=== PATIENT | female | born 1965 | race Caucasian/White ===

== ENCOUNTER → 2023-11-18 17:26 | Outpatient (REF) | payer BC, SELFPAY | LOC: RAD 17:26 | PROVIDERS: ATTENDING PHYSICIAN Family Medicine | DX: M79.672 Pain in left foot (principal) | CPT/HCPCS: 73630 ==

== ENCOUNTER → 2023-11-19 10:24 | Outpatient (REF) | payer BC, SELFPAY | LOC: HWWDC 10:24 | PROVIDERS: ATTENDING PHYSICIAN Obstetrics & Gynecology; FAMILY PHYSICIAN Family Medicine | DX: Z12.31 Encounter for screening mammogram for malignant neoplasm of breast (principal) | CPT/HCPCS: 77063; 77067 ==

== ENCOUNTER → 2024-05-17 10:56 | Outpatient (REF) | payer BC, SELFPAY | LOC: HWRAD 10:56 | PROVIDERS: ATTENDING PHYSICIAN Family Medicine | DX: I87.2 Venous insufficiency (chronic) (peripheral) (principal) | CPT/HCPCS: 93970 ==

== ENCOUNTER 2024-07-13 06:33 | Day surgery (SDC) | payer BC, SELFPAY | END 2024-07-13 14:52 | disposition home or self-care (01) | LOC: GI 06:33 | PROVIDERS: ATTENDING PHYSICIAN Surgery | DX: Z12.11 Encounter for screening for malignant neoplasm of colon (principal); Z86.0100 Personal history of colon polyps, unspecified; Z83.719 Family history of colon polyps, unspecified ==

== ENCOUNTER 2024-07-19 08:31 | Inpatient (IN) | payer BC, SELFPAY ==
[2024-07-13] VITALS (7 sets, daily range): BP systolic 121–153; BP diastolic 71–96; BMI 26.5
[2024-07-13 21:45] LABS: % Basophils 0.9 % (0-2); % Eosinophils 1.6 % (0-6); % Immature Granulocytes 0.1 % (0-0.5); % Lymphocytes 32.6 % (20.5-51.1); % Monocytes 9.4 % (1.7-9.3); % Neutrophils 55.4 % (42.2-75.2); Absolute Basophils 0.1 10^3/uL (0-0.2); Absolute Eosinophils 0.1 10^3/uL (0-0.7); Absolute Lymphocytes 2.4 10^3/uL (1.2-3.4); Absolute Monocytes 0.7 10^3/uL (0.1-0.6); Absolute Neutrophils 4.1 10^3/uL (1.4-6.5); Hematocrit 40.4 % (37.0-47.0); Hemoglobin 13.9 g/dL (12.0-16.0); Mean Corp Hgb Conc. 34.4 g/dL (33.0-37.0); Mean Corpuscular Hgb 32.8 pg (27.0-31.0); Mean Corpuscular Volume 95.3 fL (81.0-99.0); Mean Platelet Volume 10.4 fL (7.4-10.4); Nucleated Red Blood Cells % 0 %; Platelet Count 256 10^3/uL (130-400); Red Blood Cell Count 4.24 10^6/uL (4.20-5.40); Red Cell Dist. Width 11.8 % (11.5-14.5); White Blood Cell Count 7.5 10^3/uL (4.8-10.8)
[2024-07-13 22:07] LABS: ALT (SGPT) 152 U/L (0-35); AST (SGOT) 151 U/L (14-36); Albumin 4.8 g/dl (3.5-5.0); Alkaline Phosphatase 88 U/L (38-126); Blood Urea Nitrogen 11 mg/dl (7-17); Calcium 9.5 mg/dl (8.4-10.2); Carbon Dioxide 28 mmol/L (22-30); Chloride 103 mmol/L (98-107); Estimated Creatinine Clearance 76 ml/min; Glucose 97 mg/dl (70-99); Potassium 3.5 mmol/L (3.5-5.1); Sodium 140 mmol/L (135-145); Total Bilirubin 0.6 mg/dl (0.2-1.3); Total Protein 7.2 g/dl (6.3-8.2); eGFR > 60.00
[2024-07-14] VITALS (8 sets, daily range): BP systolic 124–173; BP diastolic 78–100; BMI 25.2
--- NOTE | 2024-07-14 00:23 | ED.GENMED ---
History of Present Illness
<Laisha Almonte PA-C - Last Filed: 07/14/24 06:59>
General
Chief Complaint: Rectal Bleeding
Source: patient
Exam Limitations: none
Time Seen by Provider: 07/14/24 00:18
Nursing documentation reviewed up to this point in time: agreed with
History of Present Illness
History of Present Illness:
This is a 59 y/o female with a pmh of APS on warfarin, hypertension, hemorrhoids who presents emergency department today with concerns of heavy rectal bleeding. Patient reports that she had a colonoscopy with Dr. Chowdary today at around 1 pm. When
she got home, she started to notice some mild rectal bleeding at around 5 PM. She then started to then feel bit fatigued and lightheaded and 3 episodes in which she soaked through multiple pairs of underwear, filled the toilet bowel, and said that
bright red blood was pouring out of her rectum. She tried to call Dr. Chowdary's office but she could not get in contact with anyone. She subsequently contacted her and they went to the ER. Patient reports that since she has been in the
emergency department, her bleeding has slowed down. She denies any abdominal pain. She denies any nausea or vomiting. Patient did not have a biopsy or polyp removal at that time.
Past History
<Laisha Almonte PA-C - Last Filed: 07/14/24 06:59>
Past History
ED Past Medical History: HTN and Other (Pre clampsia, Migraines, antiphospholipid antibody syndrome)
ED Past Surgical History: and Tonsilectomy
Social History
Tobacco: Non-smoker
Alcohol: None
Personal:
Living: with family
Review of Systems
<Laisha Almonte PA-C - Last Filed: 07/14/24 06:59>
Review of Systems
All Other Systems: ROS reviewed and negative except as documented in HPI and ROS
Phy Exam
<Laisha Almonte PA-C - Last Filed: 07/14/24 06:59>
Physical Exam
Physical Exam:
General: Patient is well appearing and in no acute distress; non-toxic
Skin: Warm and dry, no rashes or lesions
Head: Normocephalic, atraumatic
Eyes: Sclera non-icteric. EOMs intact.
Cardiac: Regular rate and rhythm, no murmurs
Peripheral Vascular: No lower extremity swelling or edema
Pulm: Normal respiratory effort, no wheezes, rales, rhonchi
Abdomen: No abdominal tenderness to palpation
Genitourinary: External hemorrhoids noted. Bright red blood within the rectal vault, maroon-colored stool.
Neuro: CN II-XII intact, no focal neurologic deficits.
Psychiatric: Appropriate mood and affect.
Course
<DIDI Gillette Filed: 07/14/24 06:59>
Orders/Labs/Results
Orders:
Orders
07/13/24 21:33
Type And Crossmatch [Type+Screen] Urgent
Complete Blood Count/With Diff Urgent
Comprehensive Metabolic Panel Urgent
07/14/24 00:47
0.9% Sodium Chloride 1000 ml [Nss] 1,000 ml IV BOLUS
07/14/24 00:58
Complete Blood Count/With Diff Urgent
07/14/24 02:20
Prothrombin Time Urgent
07/14/24 03:18
ColoRectal Surgery Consult Urgent
Consulting Provider: Rashaun Chowdary
Was physician already notified: Yes
07/14/24 04:40
Admit/Transfer Patient As Directed
Co-Sign Provider:
Level of Care: Observation services
Assign to:: Telemetry
Physician / Group: Robert
Diagnosis: LGIB
Reason for Telemetry: Arrhythmia
Date to Stop Telemetry: 07/17/24
Time to Stop Telemetry: 11:00
Code Status As Directed
Resuscitation Status: Full Code
PRN Pain Medication Management As Directed
May give lesser potent ordered pain med per pt: Yes
preference::
Protocol:: Medication orders for pain may be administered in a
manner that supports deferring to patient preference
when the pt is:
- Requesting an ordered lesser potent pain medication.
Least to most potent pain medications are defined
as: acetaminophen < NSAID < tramadol < opioids
(morphine, oxycodone, hydromorphone).
- Requesting a lesser dose of the same medication IF
ORDERED.
- Requesting a less intrusive route of administration
if both routes are prescribed by the provider (PO <
IV).
07/14/24 05:11
Acetaminophen [Tylenol] 650 mg PO Q4HPRN PRN
Lactated Ringers [Lr] 1,000 ml IV 100 mls/hr
Ondansetron Injectable [Zofran] 4 mg IV Q6HPRN PRN
07/14/24 05:11
Activity As Directed
Activity Level: Bedrest
EKG with chest pain [ECG as needed] As Directed
ECG as needed for:: Chest Pain
I/O [Intake/ Output] As Directed
Frequency: Per unit guidelines
Pneumatic Compression Sleeves As Directed
Type: Knee high
Vital Signs As Directed
Frequency: Per unit guidelines
Oxygen Therapy [O2 Therapy] [RESP] Routine
Titrate/Wean O2 to maintain O2 sat greater than (%): 94
DX Deep Vein Thrombosis Video Routine
07/14/24 Breakfast
NPO
Allow oral meds: Yes
Allow clear liquids: Sips of Clears
07/14/24 06:08
Basic Metabolic Panel IN AM
Complete Blood Count/No Diff IN AM
Prothrombin Time IN AM
07/14/24 08:00
Pantoprazole [Protonix IV] 40 mg IV DAILY
07/15/24 06:00
Prothrombin Time IN AM
07/16/24 06:00
Prothrombin Time IN AM
07/17/24 06:00
Prothrombin Time IN AM
07/17/24 11:00
DC Protocol for Telemetry ONCE
Abnormal Lab Results
07/13/24 07/14/24
21:33 00:58
RBC 3.66 L 10^6/uL
(4.20-5.40)
Hct 34.8 L %
(37.0-47.0)
MCH 32.8 H pg 33.1 H pg
(27.0-31.0) (27.0-31.0)
Absolute Monos (auto) 0.7 H 10^3/uL
(0.1-0.6)
Monocytes % 9.4 H %
(1.7-9.3)
AST 151 H U/L
(14-36)
ALT 152 H U/L
(0-35)
07/14/24 00:58
07/13/24 21:33
Vital Signs
Initial and Last Documented VS:
Initial Vital Signs
Temp Pulse Resp Pulse Ox
98.2 F 95 18 100
07/13/24 21:18 07/13/24 21:18 07/13/24 21:18 07/13/24 21:18
Last Documented Vital Signs
Temp Pulse Resp BP Pulse Ox
98.2 F 68 15 157/98 97
07/13/24 21:18 07/14/24 06:16 07/14/24 06:16 07/14/24 06:16 07/14/24 06:16
<Cody Long, DO - Last Filed: 07/14/24 02:53>
Orders/Labs/Results
Orders:
Orders
07/13/24 21:33
Type And Crossmatch [Type+Screen] Urgent
Complete Blood Count/With Diff Urgent
Comprehensive Metabolic Panel Urgent
07/14/24 00:47
0.9% Sodium Chloride 1000 ml [Nss] 1,000 ml IV BOLUS
07/14/24 00:58
Complete Blood Count/With Diff Urgent
07/14/24 02:20
Prothrombin Time Urgent
07/14/24 03:18
ColoRectal Surgery Consult Urgent
Consulting Provider: Rashaun Chowdary
Was physician already notified: Yes
07/14/24 04:40
Admit/Transfer Patient As Directed
Co-Sign Provider:
Level of Care: Observation services
Assign to:: Telemetry
Physician / Group: Robert
Diagnosis: LGIB
Reason for Telemetry: Arrhythmia
Date to Stop Telemetry: 07/17/24
Time to Stop Telemetry: 11:00
Code Status As Directed
Resuscitation Status: Full Code
PRN Pain Medication Management As Directed
May give lesser potent ordered pain med per pt: Yes
preference::
Protocol:: Medication orders for pain may be administered in a
manner that supports deferring to patient preference
when the pt is:
- Requesting an ordered lesser potent pain medication.
Least to most potent pain medications are defined
as: acetaminophen < NSAID < tramadol < opioids
(morphine, oxycodone, hydromorphone).
- Requesting a lesser dose of the same medication IF
ORDERED.
- Requesting a less intrusive route of administration
if both routes are prescribed by the provider (PO <
IV).
07/14/24 05:11
Acetaminophen [Tylenol] 650 mg PO Q4HPRN PRN
Lactated Ringers [Lr] 1,000 ml IV 100 mls/hr
Ondansetron Injectable [Zofran] 4 mg IV Q6HPRN PRN
07/14/24 05:11
Activity As Directed
Activity Level: Bedrest
EKG with chest pain [ECG as needed] As Directed
ECG as needed for:: Chest Pain
I/O [Intake/ Output] As Directed
Frequency: Per unit guidelines
Pneumatic Compression Sleeves As Directed
Type: Knee high
Vital Signs As Directed
Frequency: Per unit guidelines
Oxygen Therapy [O2 Therapy] [RESP] Routine
Titrate/Wean O2 to maintain O2 sat greater than (%): 94
DX Deep Vein Thrombosis Video Routine
07/14/24 Breakfast
NPO
Allow oral meds: Yes
Allow clear liquids: Sips of Clears
07/14/24 06:08
Basic Metabolic Panel IN AM
Complete Blood Count/No Diff IN AM
Prothrombin Time IN AM
07/14/24 08:00
Pantoprazole [Protonix IV] 40 mg IV DAILY
07/15/24 06:00
Prothrombin Time IN AM
07/16/24 06:00
Prothrombin Time IN AM
07/17/24 06:00
Prothrombin Time IN AM
07/17/24 11:00
DC Protocol for Telemetry ONCE
Abnormal Lab Results
07/13/24 07/14/24
21:33 00:58
RBC 3.66 L 10^6/uL
(4.20-5.40)
Hct 34.8 L %
(37.0-47.0)
MCH 32.8 H pg 33.1 H pg
(27.0-31.0) (27.0-31.0)
Absolute Monos (auto) 0.7 H 10^3/uL
(0.1-0.6)
Monocytes % 9.4 H %
(1.7-9.3)
AST 151 H U/L
(14-36)
ALT 152 H U/L
(0-35)
07/14/24 00:58
07/13/24 21:33
Vital Signs
Initial and Last Documented VS:
Initial Vital Signs
Temp Pulse Resp Pulse Ox
98.2 F 95 18 100
07/13/24 21:18 07/13/24 21:18 07/13/24 21:18 07/13/24 21:18
Last Documented Vital Signs
Temp Pulse Resp BP Pulse Ox
98.2 F 68 15 157/98 97
07/13/24 21:18 07/14/24 06:16 07/14/24 06:16 07/14/24 06:16 07/14/24 06:16
<Laisha Almonte PA-C - Last Filed: 07/14/24 06:59>
MDM/Problems Addressed
Differential Diagnosis Includes:
Differentials include lower GI bleed/post procedural bleeding, bleeding hemorrhoid, colonic perforation, supratherapeutic INR
MDM/Problems Addressed:
This is a 59 y/o female with a pmh of APS on warfarin, hypertension, hemorrhoids who presents emergency department today with concerns of heavy rectal bleeding. Patient reports that she had a colonoscopy with Dr. Chowdary today at around 1 pm. When
she got home, she started to notice some mild rectal bleeding at around 5 PM. This was then followed by 3 episodes of heavy bleeding and she states that it was pouring out of her. On physical exam, she is well-appearing in no acute distress, her
vital signs are stable, her H&H is stable. She does have maroon-colored stool and bright red blood within the rectal vault. Reviewed case with my attending. Plan to admit to hospitalist for observation with consult to Dr. Chowdary.
<Laisha Almonte PA-C - Last Filed: 07/14/24 06:59>
*Pulse Oximetry
Patient hypoxic: no
*Critical Care Note
Total Time (30-74mins, 75-104mins- exclusive of procedures): Not Applicable
Data Reviewed
Review of Other/Old Records Reveals: Records (Reviewed history summary from patient seen for mesenteric hematoma secondary to Coumadin therapy)
Source: patient and records
<Laisha Almonte PA-C - Last Filed: 07/14/24 06:59>
Patient Management
Escalation/DeEscalation of care consider admission/obs:
Case reviewed with my attending patient referred for admission
ED Attending Note
<Laisha Almonte PA-C - Last Filed: 07/14/24 06:59>
-
Portions of this chart may have been created with voice recognition software.� Occasional wrong word or��sound alike� substitutions may have occurred due to the inherent limitations of voice recognition software.
<Cody Long DO - Last Filed: 07/14/24 02:53>
ED Attending Note
Patient seen and examined by attending physician: Yes
ED Attending Note:
Pleasant 59-year-old female presents with rectal bleeding this evening after getting home from the hospital after a colonoscopy. Patient is on warfarin for antiphospholipid. Patient states that the bleeding has stopped. Patient is seen in
conjunction with the PA. I have reviewed and agree with her history and treatment plan. On my independent physical exam patient is awake, alert, and oriented x 3, in no acute distress. Heart is regular rate and rhythm without murmurs rubs or
gallops appreciated. Abdomen is soft with very minimal tenderness to the splenic and hepatic flexures. Good bowel sounds x 4 quadrants. No generalized bowel pain appreciated. Plan is to consult Dr. Chowdary, colorectal surgery and admit to the
hospitalist service.
Discharge Plan
Departure
Patient Disposition: Admit
Date of Disposition: 07/14/24
Time of Disposition: 03:20
Admit to: Med/Surg
Presentation/result/management discussed w/ accepting MD/DO: Hospitalist
Patient with high blood pressure during this ER visit?: Yes
Condition: Fair
Discharge Problem:
Colonoscopy causing post-procedural bleeding
Interventions
Interventions:
*Risk Screen - Suicide Last Done: 07/13/24 21:34
*General Assessment Last Done: 07/13/24 21:34
*Neglect/Abuse Screening Last Done: 07/13/24 21:34
*ED- Fall Risk Assessment Last Done: 07/13/24 21:34
*ED COVID-19 Vaccine History Last Done: 07/13/24 21:34
RM-Ghcztd-Qhjnbbcqmw Assessment Last Done: 07/13/24 21:34
ED- Cardiac Assessment Last Done: 07/13/24 21:34
ED- Pulmonary Assessment Last Done: 07/13/24 21:34
[2024-07-14] MEDS: NSS 1000 IV (00:51)
[2024-07-14 01:07] LABS: % Basophils 0.5 % (0-2); % Eosinophils 0.7 % (0-6); % Immature Granulocytes 0.2 % (0-0.5); % Lymphocytes 25.8 % (20.5-51.1); % Monocytes 7.7 % (1.7-9.3); % Neutrophils 65.1 % (42.2-75.2); Absolute Lymphocytes 1.5 10^3/uL (1.2-3.4); Absolute Monocytes 0.4 10^3/uL (0.1-0.6); Absolute Neutrophils 3.7 10^3/uL (1.4-6.5); Hematocrit 34.8 % (37.0-47.0); Hemoglobin 12.1 g/dL (12.0-16.0); Mean Corp Hgb Conc. 34.8 g/dL (33.0-37.0); Mean Corpuscular Hgb 33.1 pg (27.0-31.0); Mean Corpuscular Volume 95.1 fL (81.0-99.0); Mean Platelet Volume 10.1 fL (7.4-10.4); Nucleated Red Blood Cells % 0 %; Platelet Count 213 10^3/uL (130-400); Red Blood Cell Count 3.66 10^6/uL (4.20-5.40); Red Cell Dist. Width 11.7 % (11.5-14.5); White Blood Cell Count 5.6 10^3/uL (4.8-10.8)
[2024-07-14 02:44] LABS: INR 1.03; PT 13.8 Sec (11.4-14.6)
--- NOTE | 2024-07-14 04:42 | HPS.HSE ---
Family Physician
-
Family Physician: NO INTERVIEW UNKNOWN
Chief Complaint
-
BRBPR
History of Present Illness
Patient is a 59y F with PMH significant for antiphospholipid Abs syndrome who presents to ED complaining of BRBPR. Patient states that she underwent a colonoscopy at 1PM today with Dr. Chowdary. Colonoscopy was normal and no biopsies /
polypectomies were performed. Patient returned home and noted passage of small amount of bright red blood per rectum around 4PM. She continued to have small amounts until around 8:30 PM when she had a large movement consisting of large amount of
dark, red blood. She denies any abdominal pain / rectal discomfort.
She does note some lightheadedness / fatigue - which she had attributed to her recent bowel prep, anesthesia, etc.
Patient has prior history of clotting and bleeding issues secondary to APL syndrome and anticoagulation therapy.
She took her last dose of Coumadin on Friday evening in preparation for her colonoscopy.
She was placed on a Lovenox bridge which she started on AM. She did take a dose of Lovenox this AM prior to colonoscopy (which she was supposed to skip).
No anticoagulants taken since her procedure.
Patient had a single BRB bowel movement on arrival to the ED and has not had further bleeding since that time.
Medical History
Past Medical History
Past Medical History: Reports Other
Additional Past Medical History:
Antiphospholipid Syndrome
Migraine Headaches
Hypertension
Renal Infarct
Past Surgical History: Reports Other
Additional Past Surgical History:
T&A
x 2
Ex Lap / Evacuation of Peritoneal Hematoma
Social History
Tobacco: Non-smoker
Alcohol: None
Drug: None
Family History
Family History: Not pertinent
Allergies / Home Medications
Allergies reflects when Allergies were last updated in [facility].
Home Medications with original date entered in [facility]
Allergy/Medication List:
Allergies
Allergy/AdvReac Type Severity Reaction Status Date / Time
bacitracin Allergy Unknown Verified 07/13/24 21:23
[From Neosporin
([id number])]
bacitracin zinc Allergy Unknown Verified 07/13/24 21:23
[From Neosporin
([id number])]
ciprofloxacin Allergy Rash Verified 07/13/24 21:23
diphenhydramine Allergy hives all Verified 07/13/24 21:23
[From Benadryl] over
doxycycline Allergy Unknown Verified 07/13/24 21:23
erythromycin base Allergy Unknown Verified 07/13/24 21:23
[Erythromycin Base]
neomycin sulfate Allergy Unknown Verified 07/13/24 21:23
[From Neosporin
([id number])]
Penicillins Allergy Unknown Verified 07/13/24 21:23
polymyxin B Allergy Unknown Verified 07/13/24 21:23
[From Neosporin
([id number])]
Home Medications
warfarin 5 mg tablet (Jantoven) 5 mg PO .MONWEDFRISAT 06/06/18
enoxaparin 80 mg/0.8 mL subcutaneous syringe 70 mg (0.7 mL) SC Q12H ##12 06/12/18
warfarin 7.5 mg tablet (Jantoven) 7.5 mg PO .ULICES ##0 06/12/18
verapamil 180 mg tablet,extended release 180 mg PO DAILY 07/14/24
Review of Systems
-
History Source: Patient
A 12 point ROS was completed and negative except as noted: Yes
Constitutional: Reports Fatigue; Denies Fever or Chills
Respiratory: Denies Cough or Trouble Breathing
Cardiac: Denies Chest Pain or Palpitations
Abdomen/GI: Reports Bloody Stools; Denies Abdominal Pain, Nausea, Vomiting or Diarrhea
: Denies Dysuria, Frequency or Flank Pain
Musculoskeletal: Denies Joint Pain or Edema
Neurological: Denies Dizzy or Headache
Physical Exam
Vital Signs
Vital Signs
Temp Pulse Resp BP Pulse Ox
98.2 F 71 18 147/86 95
07/13/24 21:18 07/14/24 04:00 07/14/24 04:00 07/14/24 02:08 07/14/24 00:00
Physical Exam
General: Other (59y F in no acute distress.)
HEENT: Moist mucous membranes and PERRLA
Respiratory: Clear; No Wheezes, Rales or Rhonchi
Cardiac: S1/S2 and Regular Rhythm; No Murmur
GI: Soft, Non Tender, Non Distended and Normal Bowel Sounds
Musculoskeletal: No Clubbing, No Cyanosis and No Edema
Neuro: AO x 3
Laboratory Results
-
07/14/24 00:58
07/13/24 21:33
Laboratory Results
PT 13.8 Sec (11.4-14.6) 07/14/24 02:20
INR 1.03 07/14/24 02:20
Total Bilirubin 0.6 mg/dl (0.2-1.3) 07/13/24 21:33
AST 151 U/L (14-36) H 07/13/24 21:33
ALT 152 U/L (0-35) H 07/13/24 21:33
Alkaline Phosphatase 88 U/L (38-126) 07/13/24 21:33
Impression/Plan
-
A/P: Patient is a 59y F with PMH significant for antiphospholipid syndrome who presents to ED complaining of BRBPR s/p colonoscopy.
LGIB
- Observe for further evaluation and treatment.
- Continue to hold all anticoagulation for now (last dose was Lovenox in AM of 07/13).
- Follow for any additional bleeding.
- Check CTA if additional bleeding episodes.
- Follow H&H and transfuse if indicated.
- Colorectal Surgery evaluation for additional recommendations.
APL Syndrome
- Holding anticoagulation acutely as noted above.
- Resume Lovenox to Coumadin bridge once GI bleeding issues are resolved.
Benign Hypertension
- Hold verapamil acutely.
- Follow BP for changes.
Abnormal LFTs
- Mild increase in transaminases - appears new from prior.
- ? etiology of this finding. No abdominal pain, nausea, etc.
- Follow for improvement.
DVT Prophylaxis: SCDs
Code Status: Full
[2024-07-14] MEDS: LR 1000 IV (06:10)
[2024-07-14 06:28] LABS: Hematocrit 35.1 % (37.0-47.0); Mean Corp Hgb Conc. 34.2 g/dL (33.0-37.0); Mean Corpuscular Hgb 32.4 pg (27.0-31.0); Mean Corpuscular Volume 94.9 fL (81.0-99.0); Mean Platelet Volume 10.2 fL (7.4-10.4); Platelet Count 197 10^3/uL (130-400); Red Cell Dist. Width 11.8 % (11.5-14.5); White Blood Cell Count 5.5 10^3/uL (4.8-10.8)
[2024-07-14 06:36] LABS: INR 1.05
[2024-07-14 06:55] LABS: Blood Urea Nitrogen 7 mg/dl (7-17); Calcium 8.6 mg/dl (8.4-10.2); Carbon Dioxide 27 mmol/L (22-30); Chloride 110 mmol/L (98-107); Estimated Creatinine Clearance 89 ml/min; Glucose 92 mg/dl (70-99); Potassium 3.4 mmol/L (3.5-5.1); Sodium 143 mmol/L (135-145); eGFR > 60.00
[2024-07-14] MEDS: NSS (PRESERVATIVE FREE) 10 ML IV (07:47)
[2024-07-14] MEDS: PROTONIX IV 40 MG IV (07:47)
--- NOTE | 2024-07-14 10:32 | W.PN.HOSP.TC ---
Today's Communication/Plan
-
Advance diet.
Resume Lovenox for bridging tonight
Follow hemoglobin
Assessment / Plan
Assessment / Plan
Impression:
Patient is a 59y F with PMH significant for antiphospholipid syndrome who presents to ED complaining of BRBPR s/p colonoscopy.
Post polypectomy lower gastrointestinal bleeding
Elevated transaminases
Mild hypokalemia
Conditions prior to admission:
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
Benign hypertension
Plan:
Post polypectomy bleeding in the settings of anticoagulation
Patient with antiphospholipid syndrome on anticoagulation is Coumadin with last dose of Coumadin on 07/07 bridging with Lovenox. Last dose of Lovenox the day of the procedure 07/13.
Reported bright red blood movement prior to admission to ED.
Hemoglobin stable 13�12 likely dilutional with no additional hemorrhage since admission.
Advance to low residue diet.
Resume Lovenox tonight for bridging.
Follow hemoglobin in a.m.
Antiphospholipid syndrome.
Chronic anticoagulation with Coumadin
Patient will need bridging with Lovenox to therapeutic INR (increased risk for thromboembolic events without bridging given transient decrease of protein S C levels with initiation of Coumadin)
Abnormal LFTs with mild elevation of transaminases.
Follow trend.
If uptrending consider imaging
Essential hypertension
Continue verapamil
Anticipated Discharge: 24 - 48 hours
Subjective/Interval History
-
Date of Service: July 14, 2024
Objective Data
-
Labs:
Laboratory Results
07/14/24 07/14/24 07/14/24
00:58 02:20 06:08
WBC 5.6 5.5
Hgb 12.1 12.0
Hct 34.8 L 35.1 L
Plt Count 213 197
PT 13.8 14.0
INR 1.03 1.05
Sodium 143
Potassium 3.4 L
Chloride 110 H
Carbon Dioxide 27
BUN 7
Creatinine 0.6
Glucose 92
Calcium 8.6
Vital Signs:
Vital Signs
Temp Pulse Resp BP Pulse Ox
98.2 F 74 11 157/98 97
07/13/24 21:18 07/14/24 09:00 07/14/24 09:00 07/14/24 06:16 07/14/24 06:16
I&O
07/13/24 07/14/24 07/15/24
06:59 06:59 06:59
Intake Total 1000 / 1000
Output Total 600 / 600
Balance 400 / 400
Physical Exam
-
General: Well Developed and No Apparent Distress
HEENT: Normocephalic, Atraumatic and Moist Mucous Membranes
Respiratory: Clear to Auscultation
Cardiac: Regular Rhythm and S1/S2; Negative Murmur, Rub or Gallop
GI: Soft, Nontender, Nondistended and Normal Bowel Sounds; Negative Organomegaly
Rectal: Deferred by Provider
Musculoskeletal: No Clubbing, No Cyanosis and No Edema
Skin: Negative Rash
Neuro: Nonfocal/Grossly Intact
[2024-07-14] MEDS: KCL 40 MEQ PO (11:42)
--- NOTE | 2024-07-14 12:55 | CON.CRS ---
Consultation
-
Date/Time Consultation Requested: 07/14/2024, 3:18 AM
Date/Time Consultation Performed: 07/14/2024, 8:30 AM
Requesting Provider: Laisha Almonte PA-C
Performing Provider: Dr. Robert Chowdary
Reason for Consultation: Rectal bleeding
Medical History
-
Chief Complaint: Rectal bleeding status post colonoscopy
History of Present Illness:
59-year-old female with a history of antiphospholipid antibody syndrome and history of abdominal hemoperitoneum hematoma status post ex lap with evacuation of hematoma in 2018, presents to [facility] emergency department due to rectal
bleeding status post colonoscopy. She underwent a colonoscopy yesterday by Dr. Chowdary on 07/13/2024. The entire colon was normal and no specimens were collected. The patient states after she went home she developed rectal bleeding that became quite
severe around 8:30 PM. She states the bleeding was dark and cloudy in nature and felt like 'a faucet had turned on into the toilet'. She does have a history of clotting and bleeding issues secondary to her antiphospholipid antibody syndrome. She
receives Coumadin daily and was placed on Lovenox. When she started on 07/08/2024. Her last dose of Lovenox was the morning of the colonoscopy. Her last bloody bowel movement was on arrival to the ER and she has not had any bleeding since.
Hemoglobin on arrival was 13.9. Today is 12.0. Her vitals have remained normal. She has not had any imaging. Given the above, we have been consulted for surgical recommendations.
Past Medical History
Past Medical History: HTN and Other (Antiphospholipid Syndrome, Migraine Headaches, Renal Infarct)
Past Surgical History: and Other ( Exploratory laparotomy, with evacuation of hematoma 06/06/2018, Robert Chowdary MD )
Social History
Tobacco: Non-Smoker
Alcohol: None
Drug: None
Family History
Family History: Reviewed & Not Pertinent
Allergies / Home Medications
Allergy/AdvReac Type Severity Reaction Status Date / Time
bacitracin Allergy Unknown Verified 07/13/24 21:23
[From Neosporin
([id number])]
bacitracin zinc Allergy Unknown Verified 07/13/24 21:23
[From Neosporin
([id number])]
ciprofloxacin Allergy Rash Verified 07/13/24 21:23
diphenhydramine Allergy hives all Verified 07/13/24 21:23
[From Benadryl] over
doxycycline Allergy Unknown Verified 07/13/24 21:23
erythromycin base Allergy Unknown Verified 07/13/24 21:23
[Erythromycin Base]
neomycin sulfate Allergy Unknown Verified 07/13/24 21:23
[From Neosporin
([id number])]
Penicillins Allergy Unknown Verified 07/13/24 21:23
polymyxin B Allergy Unknown Verified 07/13/24 21:23
[From Neosporin
([id number])]
�Medication �Instructions �Recorded �Confirmed �Type
enoxaparin 80 mg/0.8 mL 70 mg (0.7 mL) SC Q12H ##12 06/12/18 07/14/24 Rx
subcutaneous syringe
acetaminophen 325 mg tablet 650 mg PO Q4HPRN PRN mild pain 07/14/24 07/14/24 History
(Tylenol)
cholecalciferol (vitamin D3) 25 25 mcg PO DAILY 07/14/24 07/14/24 History
mcg (1,000 unit) tablet (Vitamin
D3)
magnesium oxide 420 mg tablet 420 mg PO DAILY 07/14/24 07/14/24 History
riboflavin (vitamin B2) 50 mg 50 mg PO DAILY 07/14/24 07/14/24 History
tablet
triamcinolone acetonide 55 mcg 1 spray intranasal DAILY 07/14/24 07/14/24 History
nasal spray aerosol (Nasacort)
verapamil 180 mg tablet,extended 180 mg PO DAILY 07/14/24 07/14/24 History
release
Review of Systems
-
History Source: Patient
Abdomen/GI: Bloody Stools
A 10 point review of systems was completed, and was negative except as per HPI.
Physical Exam
Vital Signs
Temp 98.2 F 07/13/24 21:18
Pulse 74 07/14/24 09:00
Resp Rate 11 07/14/24 09:00
Blood pressure 157/98 07/14/24 06:16
SaO2 97 07/14/24 06:16
07/13/24 07/14/24 07/15/24
06:59 06:59 06:59
Actual Weight 65.6 kg
Body Mass Index (BMI) 26.5
Lab Results / Allergies
07/14/24 06:08
07/14/24 06:08
WBC 5.5 10^3/uL (4.8-10.8) 07/14/24 06:08
Hgb 12.0 g/dL (12.0-16.0) 07/14/24 06:08
Hct 35.1 % (37.0-47.0) L 07/14/24 06:08
Plt Count 197 10^3/uL (130-400) 07/14/24 06:08
Abs Immat Gran (auto) 0.0 10^3/uL (0-0.05) 07/14/24 00:58
Neutrophils % 65.1 % (42.2-75.2) 07/14/24 00:58
Allergy/AdvReac Type Severity Reaction Status Date / Time
bacitracin Allergy Unknown Verified 07/13/24 21:23
[From Neosporin
([id number])]
bacitracin zinc Allergy Unknown Verified 07/13/24 21:23
[From Neosporin
([id number])]
ciprofloxacin Allergy Rash Verified 07/13/24 21:23
diphenhydramine Allergy hives all Verified 07/13/24 21:23
[From Benadryl] over
doxycycline Allergy Unknown Verified 07/13/24 21:23
erythromycin base Allergy Unknown Verified 07/13/24 21:23
[Erythromycin Base]
neomycin sulfate Allergy Unknown Verified 07/13/24 21:23
[From Neosporin
([id number])]
Penicillins Allergy Unknown Verified 07/13/24 21:23
polymyxin B Allergy Unknown Verified 07/13/24 21:23
[From Neosporin
([id number])]
Physical Exam
General: Well Developed, Well Nourished and No Apparent Distress
GI: Soft, Non Tender and Non Distended
Skin: Warm and Dry
Neuro: AO x 3
Psych: Calm
Data Reviewed
-
Labs: Labs Reviewed by me, Discussed with Physician and Discussed with Patient
Old Records: Reviewed
Assessment / Plan
-
Assessment: 59-year-old female with a significant past medical history of antiphospholipid antibody syndrome and abdominal hematoma status post evacuation in 2019, presented to the ER after her colonoscopy yesterday which was nonrevealing due to
rectal bleeding
-
Plan:
-No plans for surgery at this time
- Okay to advance to a regular diet
- Trend hemoglobin
- Lovenox bridge resuming tonight per hospitalist
[2024-07-14] MEDS: CALAN EXTENDED RELEASE 180 MG PO (14:38)
--- NOTE | 2024-07-14 15:08 | PTCARENOTE ---
Patient arrived from ED on stretcher and ambulated to bed. Activity order changed to as tolerated per hospitalist. Patient reported small amount of blood in ED when passing gas. No reports of dizziness or lightheadedness. Plan of care ongoing.
--- NOTE | 2024-07-14 16:44 | PTCARENOTE ---
Patient with 1 small and 1 large BM of blood clots. No reports of dizziness. BP stable 155/100. Colorectal and Hospitalist made aware. Stat H/H drawn. Patient advised to ring for assistance. Plan of care ongoing.
[2024-07-14 16:53] LABS: Hematocrit 37.1 % (37.0-47.0)
[2024-07-14] MEDS: LOVENOX 70 MG SC (17:23)
[2024-07-14] MEDS: TYLENOL 650 MG PO (20:17)
[2024-07-15 03:13] VITALS: BP 144/97
[2024-07-15] MEDS: LOVENOX 70 MG SC (05:42)
[2024-07-15 07:10] VITALS: BP 142/93
[2024-07-15 08:48] LABS: % Basophils 1.1 % (0-2); % Eosinophils 2.1 % (0-6); % Immature Granulocytes 0.3 % (0-0.5); % Lymphocytes 30.8 % (20.5-51.1); % Monocytes 7.7 % (1.7-9.3); Absolute Basophils 0.1 10^3/uL (0-0.2); Absolute Eosinophils 0.1 10^3/uL (0-0.7); Absolute Lymphocytes 1.9 10^3/uL (1.2-3.4); Absolute Monocytes 0.5 10^3/uL (0.1-0.6); Absolute Neutrophils 3.6 10^3/uL (1.4-6.5); Hematocrit 38.6 % (37.0-47.0); Hemoglobin 13.5 g/dL (12.0-16.0); Mean Corpuscular Hgb 32.8 pg (27.0-31.0); Mean Corpuscular Volume 93.9 fL (81.0-99.0); Mean Platelet Volume 11.3 fL (7.4-10.4); Nucleated Red Blood Cells % 0 %; Platelet Count 215 10^3/uL (130-400); Red Blood Cell Count 4.11 10^6/uL (4.20-5.40); Red Cell Dist. Width 11.7 % (11.5-14.5); White Blood Cell Count 6.1 10^3/uL (4.8-10.8)
[2024-07-15] MEDS: NSS (PRESERVATIVE FREE) 10 ML IV (08:54)
[2024-07-15] MEDS: PROTONIX IV 40 MG IV (08:54)
[2024-07-15] MEDS: CALAN EXTENDED RELEASE 180 MG PO (08:54)
[2024-07-15 08:58] LABS: INR 0.96; PT 13.3 Sec (11.4-14.6)
[2024-07-15 09:00] LABS: APTT 36.6 Sec (23.4-35.0)
--- NOTE | 2024-07-15 09:00 | W.PN.CRS1 ---
Today's Communication / Plan
-
bleeding has stopped
hgb stable
okay for d/c from our perspective
Assessment/Plan
-
Assessment: 59-year-old female with a significant past medical history of antiphospholipid antibody syndrome and abdominal hematoma status post evacuation in 2019, presented to the ER after her colonoscopy yesterday which was nonrevealing due to
rectal bleeding
Hgb 13.5 (13.0)
Vitals normal
- No plans for surgery at this time
- Continue diet
- Trend hemoglobin
- Lovenox bridge per hospitalist
-Okay for d/c from our perspective as she has had no further bleeding. Follow up as needed. Will s/o, please contact us if further issues arise.
Subjective Data
Subjective Data
Date of Service: July 15, 2024
Patient states she is feeling well. She has no nausea or vomiting. She has not had any bleeding since yesterday. She is tolerating a diet. Currently has no complaints.
Objective Data
-
Vital Signs
Temp Pulse Resp BP Pulse Ox
98.0 F 66 16 142/93 97
07/15/24 07:10 07/15/24 07:10 07/15/24 07:10 07/15/24 07:10 07/15/24 07:10
Intake & Output
07/14/24 07/15/24 07/16/24
06:59 06:59 06:59
Intake Total 1000 / 1000 240 / 240
Output Total 600 / 600
Balance 400 / 400 240 / 240
Intake:
Oral fluids 240 / 240
IV fluids (Total) 1000 / 1000
NS 1000 / 1000
Output:
Urine, Voided 600 / 600
Other:
Number of approximated LARGE 1
amounts of urine
Lab Results
07/15/24 07:59
Physical Exam
-
General: No Acute Distress and AOx3
Abdomen: Soft, Non Distended and Non Tender
Skin: Warm and Dry
[2024-07-15 10:06] LABS: ALT (SGPT) 167 U/L (0-35); AST (SGOT) 104 U/L (14-36); Albumin 4.1 g/dl (3.5-5.0); Alkaline Phosphatase 67 U/L (38-126); Blood Urea Nitrogen 10 mg/dl (7-17); Calcium 9.6 mg/dl (8.4-10.2); Carbon Dioxide 26 mmol/L (22-30); Chloride 104 mmol/L (98-107); Direct Bilirubin 0.3 mg/dl (0.0-0.4); Estimated Creatinine Clearance 79 ml/min; Glucose 97 mg/dl (70-99); Potassium 3.6 mmol/L (3.5-5.1); Sodium 141 mmol/L (135-145); Total Bilirubin 0.9 mg/dl (0.2-1.3); Total Protein 6.6 g/dl (6.3-8.2); eGFR > 60.00
--- NOTE | 2024-07-15 10:52 | PTCARENOTE ---
Patient with bm of bloody clots. Colorectal made aware. CTA ordered. No complaints from patient BP remains stable. Plan of care ongoing.
[2024-07-15 11:05] VITALS: BP 124/78
--- NOTE | 2024-07-15 12:46 | W.PN.UPDATE ---
Update Note
Progress Note Update
I spoke to the patient. Her CTA is negative. We will start fiber, Anusol twice a day, and trend hemoglobin. Will hold Lovenox tonight. Will continue to monitor for bleeding. Discussed with Dr. Solis, Dr. Chowdary and Dr. Perry.
[2024-07-15] MEDS: ANUSOL HC 25 MG RECTAL ×2 (13:21→19:33)
--- NOTE | 2024-07-15 14:59 | W.PN.HOSP.TC ---
Today's Communication/Plan
-
Post colonoscopy gastrointestinal bleeding
Patient with antiphospholipid syndrome on anticoagulation is Coumadin with last dose of Coumadin on 07/07 bridging with Lovenox. Last dose of Lovenox the day of the procedure 07/13.
Patient had recurrent bowel movements with blood clots at least twice since admission.
Received dose of Lovenox on 07/14 PM and 07/15 AM.
Hemodynamically stable with no tachycardia and stable hemoglobin
CTA on 07/15 with no bleeding.
Suspect bleeding from hemorrhoidal source.
Plan is for close monitoring while in hospital.
Fiber diet and Anusol.
Follow hemoglobin
Hold next dose of Lovenox.
Assessment / Plan
Assessment / Plan
Impression:
Patient is a 59y F with PMH significant for antiphospholipid syndrome who presents to ED complaining of BRBPR s/p colonoscopy.
Post colonoscopy lower gastrointestinal bleeding
Elevated transaminases
Mild hypokalemia
Conditions prior to admission:
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
Benign hypertension
Plan:
Post colonoscopy gastrointestinal bleeding
Patient with antiphospholipid syndrome on anticoagulation is Coumadin with last dose of Coumadin on 07/07 bridging with Lovenox. Last dose of Lovenox the day of the procedure 07/13.
Patient had recurrent bowel movements with blood clots at least twice since admission.
Received dose of Lovenox on 07/14 PM and 07/15 AM.
Hemodynamically stable with no tachycardia and stable hemoglobin
CTA on 07/15 with no bleeding.
Suspect bleeding from hemorrhoidal source.
Plan is for close monitoring while in hospital.
Fiber diet and Anusol.
Follow hemoglobin
Hold next dose of Lovenox.
Antiphospholipid syndrome.
Chronic anticoagulation with Coumadin
Patient will need bridging with Lovenox to therapeutic INR (increased risk for thromboembolic events without bridging given transient decrease of protein S C levels with initiation of Coumadin)
Abnormal LFTs with mild elevation of transaminases.
Follow trend.
If uptrending consider imaging
Essential hypertension
Continue verapamil
Anticipated Discharge: 24 - 48 hours
Subjective/Interval History
-
Date of Service: July 15, 2024
Objective Data
-
Labs:
Laboratory Results
07/15/24 07/15/24 07/15/24
07:59 12:26 23:49
WBC 6.1
Hgb 13.5 13.0 Pending
Hct 38.6
Plt Count 215
PT 13.3
INR 0.96
APTT 36.6 H
Sodium 141
Potassium 3.6
Chloride 104
Carbon Dioxide 26
BUN 10
Creatinine 0.6
Glucose 97
Calcium 9.6
Total Bilirubin 0.9
AST 104 H
ALT 167 H
Alkaline Phosphatase 67
Vital Signs:
Vital Signs
Temp Pulse Resp BP Pulse Ox
98.1 F 68 16 124/78 100
07/15/24 11:05 07/15/24 11:05 07/15/24 11:05 07/15/24 11:05 07/15/24 11:05
I&O
07/14/24 07/15/24 07/16/24
06:59 06:59 06:59
Intake Total 1000 / 1000 240 / 240
Output Total 600 / 600
Balance 400 / 400 240 / 240
Physical Exam
-
General: Well Developed and No Apparent Distress
HEENT: Normocephalic, Atraumatic and Moist Mucous Membranes
Respiratory: Clear to Auscultation
Cardiac: Regular Rhythm and S1/S2; Negative Murmur, Rub or Gallop
GI: Soft, Nontender, Nondistended and Normal Bowel Sounds; Negative Organomegaly
Rectal: Deferred by Provider
Musculoskeletal: No Clubbing, No Cyanosis and No Edema
Skin: Negative Rash
Neuro: Nonfocal/Grossly Intact
[2024-07-15 15:10] VITALS: BP 128/86
--- NOTE | 2024-07-15 16:38 | CM ---
Met with patient to obtain information for assessment. Patient stated that she lives alone in a two story home with one step to enter. She described herself as independent with her ADLs, personal care, dressing and bathing. 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 She drives and can get herself to all of her appointments and do her own shopping. Patient has never been to a SNF. She has not had VN services.
Patient has a prescription plan and uses, [facility] [address] for all of her medications.
Patient's PCP is not listed.
OBS letter reviewed and on chart.
Plan: Case management will continue to follow and assist with discharge planning. Home when stable.
[2024-07-15 19:36] VITALS: BP 139/94
[2024-07-15 23:15] VITALS: BP 123/78
[2024-07-15 23:59] LABS: Hemoglobin 11.8 g/dL (12.0-16.0)
[2024-07-16 03:45] VITALS: BP 114/78
[2024-07-16 07:10] VITALS: BP 157/92
[2024-07-16 07:38] LABS: INR 0.95; PT 13.1 Sec (11.4-14.6)
[2024-07-16 07:41] LABS: % Basophils 0.7 % (0-2); % Eosinophils 2.9 % (0-6); % Immature Granulocytes 0.2 % (0-0.5); % Lymphocytes 22.9 % (20.5-51.1); % Monocytes 9.8 % (1.7-9.3); % Neutrophils 63.5 % (42.2-75.2); Absolute Eosinophils 0.2 10^3/uL (0-0.7); Absolute Lymphocytes 1.3 10^3/uL (1.2-3.4); Absolute Monocytes 0.6 10^3/uL (0.1-0.6); Absolute Neutrophils 3.7 10^3/uL (1.4-6.5); Hematocrit 34.4 % (37.0-47.0); Mean Corp Hgb Conc. 34.9 g/dL (33.0-37.0); Mean Corpuscular Hgb 33.1 pg (27.0-31.0); Mean Corpuscular Volume 94.8 fL (81.0-99.0); Mean Platelet Volume 10.5 fL (7.4-10.4); Nucleated Red Blood Cells % 0 %; Platelet Count 193 10^3/uL (130-400); Red Blood Cell Count 3.63 10^6/uL (4.20-5.40); Red Cell Dist. Width 11.7 % (11.5-14.5); White Blood Cell Count 5.8 10^3/uL (4.8-10.8)
--- NOTE | 2024-07-16 09:44 | W.PN.CRS1 ---
Today's Communication / Plan
-
okay to restart lovenox
change diet to regular
Assessment/Plan
-
Assessment: 59-year-old female with a significant past medical history of antiphospholipid antibody syndrome and abdominal hematoma status post evacuation in 2019, presented to the ER after her colonoscopy yesterday which was nonrevealing due to
rectal bleeding
Hgb 12.0 (13.5)
Vitals normal
- No plans for surgery at this time
- Continue diet, will change to regular
- Trend hemoglobin
- Lovenox bridge per hospitalist - okay to restart this morning, discussed with Dr. Chowdary and Dr. Solis
- If continues to bleed today, will consider a flex sig
Subjective Data
Subjective Data
Date of Service: July 16, 2024
Patient states she had a clotty movement last night. She has not bled this morning. She has no nausea or vomiting. Denies abdominal pain.
Objective Data
-
Vital Signs
Temp Pulse Resp BP Pulse Ox
98.5 F 64 18 157/92 97
07/16/24 07:10 07/16/24 07:10 07/16/24 07:10 07/16/24 07:10 07/16/24 07:10
Intake & Output
07/15/24 07/16/24 07/17/24
06:59 06:59 06:59
Intake Total 240 / 240 660 / 660
Balance 240 / 240 660 / 660
Intake:
Oral fluids 240 / 240 660 / 660
Other:
Number of approximated MODERATE 3
amounts of urine
Number of approximated LARGE 1
amounts of urine
Lab Results
07/16/24 06:19
07/15/24 07:59
Physical Exam
-
General: No Acute Distress and AOx3
Abdomen: Soft, Non Distended and Non Tender
Skin: Warm and Dry
[2024-07-16] MEDS: ANUSOL HC 25 MG RECTAL ×2 (10:17→20:18)
[2024-07-16] MEDS: NSS (PRESERVATIVE FREE) 10 ML IV (10:17)
[2024-07-16] MEDS: PROTONIX IV 40 MG IV (10:17)
[2024-07-16] MEDS: CALAN EXTENDED RELEASE 180 MG PO (10:17)
[2024-07-16 11:06] VITALS: BP 130/88
--- NOTE | 2024-07-16 11:30 | W.DS.TRANS ---
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
-
Discharge Instructions:
Discharge Diagnosis/Procedures Lower Gi beeding
Diet Regular
Instructions:
Stand-Alone Forms:
Changes to Home Medications: No
Discharge Medications:
DC Medications w/original date entered in [employer]
enoxaparin 80 mg/0.8 mL subcutaneous syringe 70 mg (0.7 mL) SC Q12H ##12 06/12/18
acetaminophen 325 mg tablet (Tylenol) 650 mg PO Q4HPRN PRN mild pain 07/14/24
cholecalciferol (vitamin D3) 25 mcg (1,000 unit) tablet (Vitamin D3) 25 mcg PO DAILY 07/14/24
magnesium oxide 420 mg tablet 420 mg PO DAILY 07/14/24
riboflavin (vitamin B2) 50 mg tablet 50 mg PO DAILY 07/14/24
triamcinolone acetonide 55 mcg nasal spray aerosol (Nasacort) 1 spray intranasal DAILY 07/14/24
verapamil 180 mg tablet,extended release 180 mg PO DAILY 07/14/24
hydrocortisone acetate 25 mg rectal suppository 25 mg VA BID #12 ea 07/16/24
Home Medication Changes
Pending Results: No
[2024-07-16] MEDS: LOVENOX 70 MG SC (11:43)
[2024-07-16 15:02] VITALS: BP 147/84
--- NOTE | 2024-07-16 16:15 | W.PN.HOSP.TC ---
Today's Communication/Plan
-
Hold Lovenox
Clears
Possibly scope with hemorrhoid treatment on 07/17
Assessment / Plan
Assessment / Plan
Impression:
Patient is a 59y F with PMH significant for antiphospholipid syndrome who presents to ED complaining of BRBPR s/p colonoscopy.
Post colonoscopy lower gastrointestinal bleeding
Elevated transaminases
Mild hypokalemia
Conditions prior to admission:
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
Benign hypertension
Plan:
Post colonoscopy gastrointestinal bleeding
Patient with antiphospholipid syndrome on anticoagulation is Coumadin with last dose of Coumadin on 07/07 bridging with Lovenox. Last dose of Lovenox the day of the procedure 07/13.
Patient had recurrent bowel movements with blood clots at least twice since admission.
Received dose of Lovenox on 07/14 PM and 07/15 AM.
Hemodynamically stable with no tachycardia and stable hemoglobin
CTA on 07/15 with no bleeding.
Recurrent painless rectal bleeding with introduction of Lovenox. Hemoglobin remained stable
Discussed with colorectal surgery with plan for risk of on 07/17 and possible hemorrhoid treatment
Antiphospholipid syndrome.
Chronic anticoagulation with Coumadin
Patient will need bridging with Lovenox to therapeutic INR (increased risk for thromboembolic events without bridging given transient decrease of protein S C levels with initiation of Coumadin)
Abnormal LFTs with mild elevation of transaminases.
Follow trend.
If uptrending consider imaging
Essential hypertension
Continue verapamil
Anticipated Discharge: 24 - 48 hours
Subjective/Interval History
-
Date of Service: July 16, 2024
Objective Data
-
Labs:
Laboratory Results
07/16/24
06:19
WBC 5.8
Hgb 12.0
Hct 34.4 L
Plt Count 193
PT 13.1
INR 0.95
Vital Signs:
Vital Signs
Temp Pulse Resp BP Pulse Ox
98.4 F 65 18 147/84 97
07/16/24 15:02 07/16/24 15:02 07/16/24 15:02 07/16/24 15:02 07/16/24 15:02
I&O
07/15/24 07/16/24 07/17/24
06:59 06:59 06:59
Intake Total 240 / 240 660 / 660
Balance 240 / 240 660 / 660
Physical Exam
-
General: Well Developed and No Apparent Distress
HEENT: Normocephalic, Atraumatic and Moist Mucous Membranes
Respiratory: Clear to Auscultation
Cardiac: Regular Rhythm and S1/S2; Negative Murmur, Rub or Gallop
GI: Soft, Nontender, Nondistended and Normal Bowel Sounds; Negative Organomegaly
Rectal: Deferred by Provider
Musculoskeletal: No Clubbing, No Cyanosis and No Edema
Skin: Negative Rash
Neuro: Nonfocal/Grossly Intact
--- NOTE | 2024-07-16 17:10 | CM ---
Spoke with pt in room .
She said she has not tolerated clear liquid yet.
She did not feel she was gong to be ready for dc today.
She said she may need surgery prior to dc.
Her will transport her home at dc.
PLAN Home with no anticipated needs
[2024-07-16 19:43] VITALS: BP 157/103
[2024-07-16] MEDS: NORMOSOL-R/PLASMALYTE-A 1000 IV (20:15)
[2024-07-16] MEDS: NULYTELY SOLUTION 2 LITERS PO (20:18)
[2024-07-16 23:51] VITALS: BP 145/89
[2024-07-17] VITALS (13 sets, daily range): BP systolic 19–154; BP diastolic 65–91
[2024-07-17] MEDS: NULYTELY SOLUTION 2 LITERS PO (06:08)
[2024-07-17 06:17] LABS: INR 1.04; PT 13.9 Sec (11.4-14.6)
[2024-07-17] MEDS: CALAN EXTENDED RELEASE PO (08:13)
[2024-07-17] MEDS: ANUSOL HC 25 MG RECTAL ×2 (08:14→20:44)
--- NOTE | 2024-07-17 09:27 | W.PN.HOSP.TC ---
Today's Communication/Plan
-
Plan for scope by colorectal surgery today.
Assessment / Plan
Assessment / Plan
Physical exam:
General: Well Developed, Well Nourished and No Apparent Distress
HEENT: Normocephalic, Atraumatic and Moist Mucous Membranes
Respiratory: Clear to Auscultation; Negative Wheezes, Rales or Rhonchi
Cardiac: Regular Rhythm and S1/S2
GI: Soft, Nontender and Nondistended
Musculoskeletal: No Clubbing, No Cyanosis and No Edema
Neuro: Awake, Alert and Oriented
Psych: Calm
Impression:
Patient is a 59y F with PMH significant for antiphospholipid syndrome who presents to ED complaining of BRBPR s/p colonoscopy.
Post colonoscopy lower gastrointestinal bleeding
Elevated transaminases
Mild hypokalemia
Conditions prior to admission:
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
Benign hypertension
Plan:
Post colonoscopy gastrointestinal bleeding
Patient with antiphospholipid syndrome on anticoagulation is Coumadin with last dose of Coumadin on 07/07 bridging with Lovenox. Last dose of Lovenox the day of the procedure 07/13.
Patient had recurrent bowel movements with blood clots at least twice since admission.
Received dose of Lovenox on 5 PM and 07/15 AM.
Hemodynamically stable with no tachycardia and stable hemoglobin
CTA on 07/15 with no bleeding.
Recurrent painless rectal bleeding with introduction of Lovenox. Hemoglobin remained stable
Discussed with colorectal surgery with plan for scope on 07/17 and possible hemorrhoid treatment
Antiphospholipid syndrome.
Chronic anticoagulation with Coumadin
Patient will need bridging with Lovenox to therapeutic INR (increased risk for thromboembolic events without bridging given transient decrease of protein S C levels with initiation of Coumadin)
Abnormal LFTs with mild elevation of transaminases.
Follow trend.
If uptrending consider imaging
Essential hypertension
Continue verapamil
Anticipated Discharge: 24 - 48 hours
Subjective/Interval History
-
Date of Service: July 17, 2024
Patient still having some rectal bleed. No abdominal pain nausea or vomiting.
Objective Data
-
Labs:
Laboratory Results
07/17/24 07/17/24 07/17/24
05:47 07:51 07:52
WBC Pending
Hgb Pending
Hct Pending
Plt Count Pending
PT 13.9
INR 1.04
Sodium Pending
Potassium Pending
Chloride Pending
Carbon Dioxide Pending
BUN Pending
Creatinine Pending
Glucose Pending
Calcium Pending
Vital Signs:
Vital Signs
Temp Pulse Resp BP Pulse Ox
97.4 F 73 18 154/84 99
07/17/24 08:27 07/17/24 08:27 07/17/24 08:27 07/17/24 08:27 07/17/24 08:27
I&O
07/16/24 07/17/24 07/18/24
06:59 06:59 06:59
Intake Total 660 / 660 960 / 960
Balance 660 / 660 960 / 960
[2024-07-17 12:07] LABS: Blood Urea Nitrogen 9 mg/dl (7-17); Calcium 8.9 mg/dl (8.4-10.2); Carbon Dioxide 25 mmol/L (22-30); Chloride 107 mmol/L (98-107); Estimated Creatinine Clearance 79 ml/min; Glucose 79 mg/dl (70-99); Potassium 3.6 mmol/L (3.5-5.1); Sodium 143 mmol/L (135-145); eGFR > 60.00
--- NOTE | 2024-07-17 13:25 | W.PN.CRS1 ---
Addendum entered and electronically signed by Cody Perry MD 07/17/24 19:28:
I saw and examined the patient.
The DISPENSING OPTICIAN's note was reviewed and I agree with the note.
Comment:
�Had lengthy discussion regarding findings on sigmoidoscopy with patient and patient's spouse; there appears to be a mucosal injury associated with the junction of the descending and sigmoid colon, which is common during colonoscopy; however, due to
her need for therapeutic AC, this likely exacerbated the bleed and led to a submucosal hematoma; there was no active bleeding and we were able to traverse the lesion; additionally, she has had no obstructive symptoms; I explained the complex nature
of her situation due to her need for therapeutic anticoagulation but her increased risk of recurrent bleeding due to the mucosal injury and hematoma; the only definitive treatment for this lesion would be surgical resection and primary anastomosis;
however, I explained there are risks with bleeding and it would require holding the therapeutic anticoagulation leading up to the surgery and for short period after surgery; alternatively, as she has had no additional bleeding or signs of
obstruction, we could proceed with nonoperative measures and close monitoring; with this option, I would hold the blood thinner for an additional 24 hours and restart a heparin drip tomorrow morning; if she has no additional bleeding, I would
advance her diet slowly; with this option, I explained that the hematoma would take several weeks, possibly a couple months, to completely resolve and there would be an increased risk of bleeding during this timeframe, but the risk of bleeding would
decrease with time; the patient was concerned about the risk of recurrent bleeding without surgery, but agreed with attempt at nonoperative measures; if surgery became necessary, she would be amenable; all questions were answered and the patient was
appreciative
Original Note:
Today's Communication / Plan
-
Colonoscopy/EUA today
Assessment/Plan
-
Assessment: 59-year-old female with a significant past medical history of antiphospholipid antibody syndrome on chronic anticoagulation who presented to the ER after her normal colonoscopy on 07/13/24 due to rectal bleeding
H/H has been stable, labs pending for today
VSS, afebrile
Completed colonoscopy prep, still with multiple bleeding episodes
- Repeat colonoscopy/EUA today
- SQ Lovenox was being utilized as Coumadin bridge, currently on hold for procedure
- Trend hemoglobin
- NPO for procedure
Subjective Data
Subjective Data
Date of Service: July 17, 2024
Patient seen and examined at bedside with Dr. Perry. Recurrent bleeding overnight. 5-6 episodes this am. Feels she needs to pass gas but passes blood as instead. Denies n/v. Denies pain.
Objective Data
-
Vital Signs
Temp Pulse Resp BP Pulse Ox
98 F 78 18 144/91 99
07/17/24 12:11 07/17/24 12:11 07/17/24 12:11 07/17/24 12:11 07/17/24 12:11
Intake & Output
07/16/24 07/17/24 07/18/24
06:59 06:59 06:59
Intake Total 660 / 660 960 / 960
Balance 660 / 660 960 / 960
Intake:
Oral fluids 660 / 660 960 / 960
Other:
Number of approximated MODERATE 3 3
amounts of urine
Lab Results
07/17/24 10:52
Physical Exam
-
General: No Acute Distress and AOx3
Abdomen: Soft, Non Distended and Non Tender
Skin: Warm and Dry
--- NOTE | 2024-07-17 13:50 | W.IMMPOSTOP ---
Surgical Immed Post Op Note
-
Primary Surgeon: Cody Perry MD
Assisting Surgeon: None
Consulting physician: Duane Jaquez MD
Pre-op Diagnosis: Lower GI bleed
Post-op Diagnosis: Mucosal injury of proximal sigmoid and distal descending colon with submucosal hematoma
Procedure Performed: Flexible sigmoidoscopy
Anesthesia Type: Sedation
Specimen / Cultures: None
Estimated Blood Loss: Minimal
Complications: None
Operative Findings: 2-3 small blood clots identified within the rectum; retroflexed and no inflamed or bleeding internal hemorrhoids visualized; at about 40 cm, identified a submucosal hematoma associated with mucosal rent; unable to get good
visualization or traverse the area; consulted Dr. Jaquez, who was able to traverse the area and reach the splenic flexure; on withdrawing, identified a 10 cm segment of mucosal injury associated with large submucosal hematoma that takes up the
majority of the diameter of the lumen; no active bleeding from the area was noted
[2024-07-17] MEDS: NORMOSOL-R/PLASMALYTE-A 1000 IV (14:33)
--- NOTE | 2024-07-17 14:35 | PTCARENOTE ---
Pt returned from PACU via bed, accompanied by COMMUNITY RECREATION COORDINATOR's x2. Pt drowsy but arousable; CARROLL well. VSS. Telemetry:NSR. On room air- pulseox 99%, no SOB noted. Abd soft, rounded, no c/o abd discomfort at present. Remains NPO. Pt DTV; instructed to
call for assistance for OOB to BR. IVF's Normosol @ 80 ml/hr resumed via Lt AC site, currently infusing without sx of infiltration. Resting comfortably at present. Will continue to monitor.
--- NOTE | 2024-07-17 15:09 | OR.RPT ---
Operative Report
Operative Report
DATE OF OPERATION: 07/17/2024
SURGEON: Cody Perry MD
PREOPERATIVE DIAGNOSIS: Lower GI bleed
POSTOPERATIVE DIAGNOSIS: Mucosal injury of the distal descending and proximal sigmoid colon associated with submucosal hematoma
OPERATION: Flexible sigmoidoscopy
ASSISTANTS:
1. None
INTRAOPERATIVE CONSULT: Duane bentley MD
ANESTHESIA: Sedation
ESTIMATED BLOOD LOSS: Minimal
FINDINGS:
1. 10 cm segment of mucosal injury associated with near�obstructing submucosal hematoma at the distal descending/proximal sigmoid colon; no active bleeding
2. With the assistance of Dr. Jaquez, reached the splenic flexure and aborted due to identification of cause of bleeding and elevated risk of additional injury
SPECIMENS:
1. None
DRAINS: None
COMPLICATIONS: No immediate complications.
INDICATIONS: The patient is a 59-year-old female with PMH of antiphospholipid syndrome on Coumadin (recent bridging with Lovenox for colonoscopy on 07/13/2024) who presented with lower GI bleeding starting 1 day after the colonoscopy. Her Lovenox
was held for 24 hours and the bleeding improved. However, after initiating the Lovenox, the bleeding started again. Therefore, I recommended undergoing colonoscopy to identify the source of bleeding and possible hemorrhoid ligation if the source
of bleeding was found to be internal hemorrhoids. The operation was discussed with the patient in detail, including the risks, benefits and alternatives. Risks described included, but not limited to, bleeding, bloating, missed lesions, inability to
complete colonoscopy, perforation. If hemorrhoid ligation undertaken, additional risks include bleeding, infection, urinary retention, injury to sphincter and fecal incontinence, anal stenosis. The patient understood and agreed to proceed.
PROCEDURE IN DETAIL: The patient was taken to the operating room. Sequential compression devices were placed bilaterally. The patient was placed in left lateral decubitus on her hospital bed. Sedation was induced without complication. I
performed a digital rectal exam, which was normal. No gross blood, masses or stenosis. I introduced the colonoscope transanally. I identified 2 blood clots within the rectal vault as well as some liquid stool. The liquid stool was suctioned with
adequate visualization of the rectal mucosa, which appeared normal. I retroflexed within the rectum and visualized small internal hemorrhoids without irritation, bleeding or any evidence of recent bleed. I advanced the colonoscope to about 40 cm
when I identified an area of swollen mucosa associated with what appeared to be an injury in the mucosa. I attempted to traverse this area and was unable to, despite abdominal pressure and placing the patient in supine position. Therefore, I
consulted with Dr. Jaquez from GI. He was able to get around this turn and identify a near obstructing submucosal hematoma of about 10 cm in length. Associated with this was superficial injury to the mucosa. Visualization was difficult due to
the near obstructing nature of the hematoma. However, he was able to traverse the hematoma and advanced to the splenic flexure. We agreed that we adequately identified the source of bleeding and advancing the colonoscope further would increase the
risk of additional injury. Therefore, the colonoscope was withdrawn. No other areas of mucosal pathology were noted. The colonoscope was removed and the procedure was complete. The patient tolerated the procedure well and was transferred to the
recovery room.
Dr. Jaquez was necessary for completion of the procedure due to the technical difficulty. I was present for the entire procedure.
DICTATED BY: Cody Perry MD
[2024-07-17 15:12] LABS: % Basophils 0.5 % (0-2); % Eosinophils 2.5 % (0-6); % Immature Granulocytes 0.3 % (0-0.5); % Lymphocytes 15.9 % (20.5-51.1); % Monocytes 6.2 % (1.7-9.3); % Neutrophils 74.6 % (42.2-75.2); Absolute Eosinophils 0.2 10^3/uL (0-0.7); Absolute Lymphocytes 1.2 10^3/uL (1.2-3.4); Absolute Monocytes 0.5 10^3/uL (0.1-0.6); Absolute Neutrophils 5.7 10^3/uL (1.4-6.5); Hematocrit 37.3 % (37.0-47.0); Hemoglobin 12.9 g/dL (12.0-16.0); Mean Corp Hgb Conc. 34.6 g/dL (33.0-37.0); Mean Corpuscular Hgb 33.2 pg (27.0-31.0); Mean Corpuscular Volume 95.9 fL (81.0-99.0); Mean Platelet Volume 10.3 fL (7.4-10.4); Nucleated Red Blood Cells % 0 %; Platelet Count 202 10^3/uL (130-400); Red Blood Cell Count 3.89 10^6/uL (4.20-5.40); Red Cell Dist. Width 11.8 % (11.5-14.5); White Blood Cell Count 7.6 10^3/uL (4.8-10.8)
[2024-07-17] MEDS: CALAN EXTENDED RELEASE 180 MG PO (20:44)
[2024-07-18 03:55] VITALS: BP 119/69
[2024-07-18 06:31] LABS: Hematocrit 29.9 % (37.0-47.0); Hemoglobin 10.6 g/dL (12.0-16.0); Mean Corp Hgb Conc. 35.5 g/dL (33.0-37.0); Mean Corpuscular Hgb 33.4 pg (27.0-31.0); Mean Corpuscular Volume 94.3 fL (81.0-99.0); Mean Platelet Volume 10.7 fL (7.4-10.4); Platelet Count 175 10^3/uL (130-400); Red Blood Cell Count 3.17 10^6/uL (4.20-5.40); Red Cell Dist. Width 11.6 % (11.5-14.5); White Blood Cell Count 5.8 10^3/uL (4.8-10.8)
[2024-07-18 06:48] LABS: INR 1.01; PT 13.6 Sec (11.4-14.6)
[2024-07-18 06:49] LABS: APTT 30.1 Sec (23.4-35.0)
[2024-07-18 06:53] LABS: Blood Urea Nitrogen 7 mg/dl (7-17); Calcium 8.7 mg/dl (8.4-10.2); Carbon Dioxide 30 mmol/L (22-30); Chloride 104 mmol/L (98-107); Estimated Creatinine Clearance 79 ml/min; Glucose 85 mg/dl (70-99); Potassium 3.5 mmol/L (3.5-5.1); Sodium 141 mmol/L (135-145); eGFR > 60.00
[2024-07-18 07:20] VITALS: BP 138/88
[2024-07-18] MEDS: ANUSOL HC 25 MG RECTAL (08:53)
--- NOTE | 2024-07-18 09:39 | W.PN.HOSP.TC ---
Today's Communication/Plan
-
Hold anticoagulation and monitor Hb. Hematology consulted by CRS.
Assessment / Plan
Assessment / Plan
Physical exam:
General: Well Developed, Well Nourished and No Apparent Distress
HEENT: Normocephalic, Atraumatic and Moist Mucous Membranes
Respiratory: Clear to Auscultation; Negative Wheezes, Rales or Rhonchi
Cardiac: Regular Rhythm and S1/S2
GI: Soft, Nontender and Nondistended
Musculoskeletal: No Clubbing, No Cyanosis and No Edema
Neuro: Awake, Alert and Oriented
Psych: Calm
Impression:
Patient is a 59y F with PMH significant for antiphospholipid syndrome who presents to ED complaining of BRBPR s/p colonoscopy.
Post colonoscopy lower gastrointestinal bleeding
Elevated transaminases
Mild hypokalemia
Conditions prior to admission:
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
Benign hypertension
Plan:
Post colonoscopy gastrointestinal bleeding
Patient with antiphospholipid syndrome on anticoagulation is Coumadin with last dose of Coumadin on 07/07 bridging with Lovenox. Last dose of Lovenox the day of the procedure 07/13.
Patient had recurrent bowel movements with blood clots at least twice since admission.
Received dose of Lovenox on 07/14 PM and 07/15 AM.
Hemodynamically stable with no tachycardia and stable hemoglobin
CTA on 07/15 with no bleeding.
Recurrent painless rectal bleeding with introduction of Lovenox. Hemoglobin remained stable
Discussed with colorectal surgery with plan for scope on 07/17 and possible hemorrhoid treatment--> patient had repeat colonoscopy on 07/17 and found to have submucosal hematoma of the sigmoid level. CRS recommends to continue to hold anticoagulation
and hematology consult. Also possibility of rechallenge with heparin drip or other over the next 24 to 48 hours and or consideration for sigmoidectomy.
Antiphospholipid syndrome.
Chronic anticoagulation with Coumadin
Patient will need bridging with Lovenox to therapeutic INR (increased risk for thromboembolic events without bridging given transient decrease of protein S C levels with initiation of Coumadin)
Abnormal LFTs with mild elevation of transaminases.
Follow trend.
If uptrending consider imaging
Essential hypertension
Continue verapamil
Anticipated Discharge: 24 - 48 hours
Subjective/Interval History
-
Date of Service: July 18, 2024
Patient continued to have rectal bleeding today. No nausea vomiting or hematemesis. No chest pain or shortness of breath
Objective Data
-
Labs:
Laboratory Results
07/18/24
05:36
WBC 5.8
Hgb 10.6 L
Hct 29.9 L
Plt Count 175
PT 13.6
INR 1.01
APTT 30.1
Sodium 141
Potassium 3.5
Chloride 104
Carbon Dioxide 30
BUN 7
Creatinine 0.6
Glucose 85
Calcium 8.7
Vital Signs:
Vital Signs
Temp Pulse Resp BP Pulse Ox
98.1 F 69 16 138/88 100
07/18/24 07:20 07/18/24 07:20 07/18/24 07:20 07/18/24 07:20 07/18/24 07:20
I&O
07/17/24 07/18/24 07/19/24
06:59 06:59 06:59
Intake Total 960 / 960 800 / 800
Balance 960 / 960 800 / 800
--- NOTE | 2024-07-18 11:09 | W.PN.CRS1 ---
Addendum entered and electronically signed by Cody Perry MD 07/18/24 16:03:
I saw and examined the patient.
The ELECTRIC MOTOR REPAIR SUPERVISOR's note was reviewed and I agree with the note.
Comment:
Had episode of blood per rectum this a.m. no other symptoms
AFVSS, ABD soft, nondistended, nontender
Hb 12.0 from 10.6 from 12.9
�Due to subsequent 'large' bloody BM this a.m., would continue holding AC; Hb fortunately stable
�Okay for clears; do not advance until cleared by surgery
�Consult hematology to discuss bleeding versus clotting risk
�Lengthy discussion with patient regarding risks of holding AC in attempt to resolve the GI bleeding, including but not limited to, DVT/PE/arterial thrombosis; explained risks of proceeding with surgery, including but not limited to bleeding risk
and subsequent delay to anticoagulation as well; patient understood well and made it clear that she would like to avoid surgery for now
Original Note:
Today's Communication / Plan
-
Clear liquid diet
Hematology consult
Assessment/Plan
-
Assessment: 59-year-old female with a significant past medical history of primary antiphospholipid antibody syndrome on chronic anticoagulation who presented to the ER after her normal colonoscopy on 07/13/24 due to rectal bleeding
PPD #1 colonoscopy with mucosal injury of the distal descending and proximal sigmoid colon associated with submucosal hematoma present
Still passing BRBPR but not large amounts
H/H drifting down
VSS, afebrile
Complex situation in setting of APS. If bleeding doesn't resolve with AC on hold, may need to consider surgical intervention which also holds high risk for bleeding. For now will follow closely with AC on hold for improvement.
- Consult hematology
- Hold full strength AC
- Trend hemoglobin
- Ok for CLD, will make NPO after MN in case OR intervention warranted
Subjective Data
Subjective Data
Date of Service: July 18, 2024
Patient seen and examined at bedside with Dr. Perry. Passing BRBPR throughout the night, usually small amounts with one larger episode. Denies n/v. Denies abd pain.
Objective Data
-
Vital Signs
Temp Pulse Resp BP Pulse Ox
98.1 F 69 16 138/88 100
07/18/24 07:20 07/18/24 07:20 07/18/24 07:20 07/18/24 07:20 07/18/24 07:20
Intake & Output
07/17/24 07/18/24 07/19/24
06:59 06:59 06:59
Intake Total 960 / 960 800 / 800
Balance 960 / 960 800 / 800
Intake:
Oral fluids 960 / 960 0 / 0
IV fluids (Total) 800 / 800
Other:
Number of approximated MODERATE 3 4
amounts of urine
Lab Results
07/18/24 05:36
Physical Exam
-
General: No Acute Distress and AOx3
Abdomen: Soft, Non Distended and Non Tender
Skin: Warm and Dry
--- NOTE | 2024-07-18 11:15 | CON.ONC ---
Impression
Impression
APS
Atypical post colonoscopy bleeding
History of renal infarct
Right ring finger distalarterial thrombosis
Migraine headaches
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
Plan
Plan
Would continue to observation
Defer surgical resection as it is unclear whether this will alter duration refractory to anticoagulation
Has previously been off of anticoagulation for protracted period following spontaneous mesenteric bleed
Previously evaluated for von Willebrand's disease negative
Iron studies performed in March were in the normal range
Monitor CBC
Patient History
History of Present Illness
Alexandria Disla is a pleasant 59-year-old female with a history of malignant antiphospholipid antibody syndrome with previous renal infarction and with persistence of markedly elevated beta-2 glycoprotein IgM antibody. She has has been stable on
warfarin for many years. She underwent bridging with Lovenox in preparation for colonoscopy. Unfortunately she took Lovenox the day of her procedure and has suffered a complication despite no biopsies being performed. She has continued to bleed
and has a colonic hematoma that has has bled recurrently. Sigmoidoscopy 07/17 fails to show evidence of active bleeding however she had red blood per rectum today. Last dose of Lovenox was administered 12/13.
Past-Medical/Surgical History
PAST MEDICAL HISTORY
Renal infarction
CVA
Antiphospholipid antibody
History of migraine
SOCIAL HISTORY
She denies tobacco or alcohol use.
FAMILY HISTORY:
Hypertension runs in the family. There is no
history of antiphospholipid antibody syndrome in the family, and her
father had an aortic aneurysm with dissection and repair.
Patient Medication
�Medication �Instructions �Recorded �Confirmed �Last Taken �Type
enoxaparin 80 mg/0.8 mL 70 mg (0.7 mL) SC Q12H ##12 06/12/18 07/14/24 07/14/24 07:00 Rx
subcutaneous syringe
acetaminophen 325 mg tablet 650 mg PO Q4HPRN PRN mild pain 07/14/24 07/14/24 07/12/24 History
(Tylenol)
cholecalciferol (vitamin D3) 25 25 mcg PO DAILY 07/14/24 07/14/24 6 Days Ago History
mcg (1,000 unit) tablet (Vitamin ~07/08/24
D3)
magnesium oxide 420 mg tablet 420 mg PO DAILY 07/14/24 07/14/24 07/13/24 History
riboflavin (vitamin B2) 50 mg 50 mg PO DAILY 07/14/24 07/14/24 6 Days Ago History
tablet ~07/08/24
triamcinolone acetonide 55 mcg 1 spray intranasal DAILY 07/14/24 07/14/24 Unknown History
nasal spray aerosol (Nasacort)
verapamil 180 mg tablet,extended 180 mg PO DAILY 07/14/24 07/14/24 Unknown History
release
hydrocortisone acetate 25 mg 25 mg MS BID #12 ea 07/16/24 Unknown Rx
rectal suppository
Active Medications
Generic Name Dose Route Start Last Admin
Trade Name Freq PRN Reason Stop Dose Admin
Acetaminophen 650 mg 07/14/24 05:11 07/14/24 20:17
Acetaminophen 325 Mg Tablet PO 08/11/24 05:10 650 mg
Q4HPRN PRN Administration
Mild Pain / Temp > 101
Enoxaparin Sodium 70 mg 07/14/24 18:00 07/15/24 05:42
Enoxaparin Sodium 80 Mg/0.8 Ml Syringe SC 08/11/24 17:59 70 mg
Q12H DOROTHY Administration
Hydrocortisone Acetate 25 mg 07/15/24 13:00 07/18/24 08:53
Anusol Hc 25 Mg Rectal Suppository RECTAL 08/12/24 12:59 25 mg
BID DOROTHY Administration
Ondansetron HCl 4 mg 07/14/24 05:11
Ondansetron 4 Mg/2 Ml Vial IV 08/11/24 05:10
Q6HPRN PRN
nausea and vomiting
Sodium Chloride 0 flush 07/14/24 06:00
Sodium Chloride 0.9% (Flush) Syringe IV 08/11/24 05:59
PER PROTOCOL DOROTHY
Verapamil HCl 180 mg 07/17/24 22:00 07/17/24 20:44
Verapamil 180 Mg (Extended Release) Tablet PO 08/14/24 21:59 180 mg
HS DOROTHY Administration
Review of Systems
-
Negative other than symptoms reviewed in the HPI
Physical Exam
-
Physical exam:
General: Well Developed, Well Nourished and No Apparent Distress
HEENT: Normocephalic, Atraumatic and Moist Mucous Membranes
Respiratory: Clear to Auscultation; Negative Wheezes, Rales or Rhonchi
Cardiac: Regular Rhythm and S1/S2
GI: Soft, Nontender and Nondistended
Musculoskeletal: No Clubbing, No Cyanosis and No Edema
Neuro: Awake, Alert and Oriented
Psych: Calm
Labs
Lab Results
WBC 5.8 10^3/uL (4.8-10.8) 07/18/24 05:36
RBC 3.17 10^6/uL (4.20-5.40) L 07/18/24 05:36
Hgb 10.6 g/dL (12.0-16.0) L 07/18/24 05:36
Hct 29.9 % (37.0-47.0) L 07/18/24 05:36
MCV 94.3 fL (81.0-99.0) 07/18/24 05:36
MCH 33.4 pg (27.0-31.0) H 07/18/24 05:36
MCHC 35.5 g/dL (33.0-37.0) 07/18/24 05:36
RDW 11.6 % (11.5-14.5) 07/18/24 05:36
Plt Count 175 10^3/uL (130-400) 07/18/24 05:36
MPV 10.7 fL (7.4-10.4) H 07/18/24 05:36
Abs Immat Gran (auto) 0.0 10^3/uL (0-0.05) 07/17/24 14:59
Absolute Neuts (auto) 5.7 10^3/uL (1.4-6.5) 07/17/24 14:59
Absolute Lymphs (auto) 1.2 10^3/uL (1.2-3.4) 07/17/24 14:59
Absolute Monos (auto) 0.5 10^3/uL (0.1-0.6) 07/17/24 14:59
Absolute Eos (auto) 0.2 10^3/uL (0-0.7) 07/17/24 14:59
Absolute Basos (auto) 0.0 10^3/uL (0-0.2) 07/17/24 14:59
Immature Gran % 0.3 % (0-0.5) 07/17/24 14:59
Neutrophils % 74.6 % (42.2-75.2) 07/17/24 14:59
Lymphocytes % 15.9 % (20.5-51.1) L 07/17/24 14:59
Monocytes % 6.2 % (1.7-9.3) 07/17/24 14:59
Eosinophils % 2.5 % (0-6) 07/17/24 14:59
Basophils % 0.5 % (0-2) 07/17/24 14:59
Creatinine 0.6 mg/dL (0.6-1.0) 07/18/24 05:36
Vital Signs
Vital Signs
Temp Pulse Resp BP Pulse Ox
98.1 F 69 16 138/88 100
07/18/24 07:20 07/18/24 07:20 07/18/24 07:20 07/18/24 07:20 07/18/24 07:20
[2024-07-18 11:36] VITALS: BP 166/95
[2024-07-18 14:27] LABS: Hematocrit 34.2 % (37.0-47.0)
[2024-07-18 15:45] VITALS: BP 144/96
[2024-07-18 19:15] VITALS: BP 160/102
[2024-07-18] MEDS: ANUSOL HC RECTAL (22:00)
[2024-07-18] MEDS: CALAN EXTENDED RELEASE 180 MG PO (22:20)
[2024-07-18 23:30] VITALS: BP 138/79
[2024-07-19 03:19] VITALS: BP 121/75
--- NOTE | 2024-07-19 06:33 | PTCARENOTE ---
1 bright red mod amt bowel movement @ beginning of shift. Denies any discomfort.
[2024-07-19 07:15] VITALS: BP 135/91
[2024-07-19 07:30] LABS: Hemoglobin 11.5 g/dL (12.0-16.0); Mean Corp Hgb Conc. 34.8 g/dL (33.0-37.0); Mean Corpuscular Hgb 32.6 pg (27.0-31.0); Mean Corpuscular Volume 93.5 fL (81.0-99.0); Mean Platelet Volume 10.6 fL (7.4-10.4); Platelet Count 207 10^3/uL (130-400); Red Blood Cell Count 3.53 10^6/uL (4.20-5.40); Red Cell Dist. Width 11.8 % (11.5-14.5); White Blood Cell Count 6.3 10^3/uL (4.8-10.8)
--- NOTE | 2024-07-19 09:09 | W.PN.CRS1 ---
Today's Communication / Plan
-
As below
Assessment/Plan
-
59-year-old female with PMH of APS (on Coumadin at home) who underwent colonoscopy on 07/13 while on bridging therapeutic Lovenox; presented with blood per rectum and admitted for observation; hemoglobin has been stable throughout but due to
persistence bleeding, underwent flexible sigmoidoscopy on 07/17, found to have mucosal injury and near obstructing submucosal hematoma of about 10 cm in length at the proximal sigmoid colon
AFVSS
Hb 11.5 from 12.0 from 10.6
�One episode of dark blood last night and none since; Hb overall stable; would favor holding AC an additional day to allow complete resolution of bleeding; reviewed risks of holding AC versus restarting and patient agreeable with continuing to hold
�Will appreciate hematology's input regarding when to restart AC
�Continue clears; do not advance without surgery input
� Pain control with Tylenol as needed
� Daily CBC
� Appreciate hospitalist
Subjective Data
Subjective Data
Date of Service: July 19, 2024
No overnight events. Yesterday at 8:30 PM, had a small BM that was dark blood mixed with mucus. No bleeding since. Passing flatus without leakage.
Denies any abdominal pain, nausea or vomiting.
Objective Data
-
Vital Signs
Temp Pulse Resp BP Pulse Ox
98.1 F 86 18 135/91 95
07/19/24 07:15 07/19/24 07:15 07/19/24 07:15 07/19/24 07:15 07/19/24 07:15
Intake & Output
07/18/24 07/19/24 07/20/24
06:59 06:59 06:59
Intake Total 800 / 800 900 / 900
Balance 800 / 800 900 / 900
Intake:
Oral fluids 0 / 0 900 / 900
IV fluids (Total) 800 / 800
Other:
Number of approximated MODERATE 4 2
amounts of urine
Lab Results
07/19/24 06:17
07/18/24 05:36
Physical Exam
-
General: No Acute Distress and AOx3
HEENT: Grossly Normal
Abdomen: Soft, Non Distended, Non Tender, No Guarding and No Rebound
Skin: Warm and Dry
[2024-07-19 11:07] VITALS: BP 119/84
--- NOTE | 2024-07-19 15:17 | W.PN.ONC2 ---
Today's Communication / Plan
-
.
Impression
Impression
APLS on chronic warfarin
A/W BRBPR s/p colonoscopy while bridging back to warfarin with enoxaparin
History of renal infarct
Right ring finger distal arterial thrombosis
Migraine headaches
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
Plan
Plan
Would continue to observation and resume anticoagulation without bridge when cleared by colorectal surgery
Has previously been off of anticoagulation for protracted period following spontaneous mesenteric bleed
Previously evaluated for von Willebrand's disease negative
Monitor CBC daily
OP follow up with Dr. Tan annually, [facility] cardiology historically manages warfarin with INR goal 2-2.5
at bedside, questions answered and updates provided
Subjective/Objective
Subjective
no new complaints
Vital Signs:
Vital Signs
Temp Pulse Resp BP Pulse Ox
98.4 F 77 18 119/84 98
07/19/24 11:07 07/19/24 11:07 07/19/24 11:07 07/19/24 11:07 07/19/24 11:07
Lab Results:
Laboratory Data
WBC 6.3 10^3/uL (4.8-10.8) 07/19/24 06:17
Hgb 11.5 g/dL (12.0-16.0) L 07/19/24 06:17
Plt Count 207 10^3/uL (130-400) 07/19/24 06:17
PT 13.6 Sec (11.4-14.6) 07/18/24 05:36
INR 1.01 07/18/24 05:36
APTT 30.1 Sec (23.4-35.0) 07/18/24 05:36
eGFR > 60.00 07/18/24 05:36
Physical Exam
HEENT: Moist Mucous Membranes; No Jaundice
Cardiology: Normal Sinus Rhythm
Pulmonary: Clear
GI: Soft
Extremities: Pulses Present
[2024-07-19 15:20] VITALS: BP 144/91
--- NOTE | 2024-07-19 16:39 | W.PN.HOSP.TC ---
Today's Communication/Plan
-
Hold Lovenox
Clear liquid diet
Monitor hemoglobin
Assessment / Plan
Assessment / Plan
Impression:
Patient is a 59y F with PMH significant for antiphospholipid syndrome who presents to ED complaining of BRBPR s/p colonoscopy.
Post colonoscopy lower gastrointestinal bleeding secondary to submucosal hematoma
Acute blood loss anemia
Elevated transaminases
Mild hypokalemia
Conditions prior to admission:
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
Benign hypertension
Plan:
Post colonoscopy gastrointestinal bleeding
Patient with antiphospholipid syndrome on anticoagulation is Coumadin with last dose of Coumadin on 07/07 bridging with Lovenox. Last dose of Lovenox the day of the procedure 07/13.
Patient had recurrent bowel movements with blood clots at least twice since admission.
Received dose of Lovenox on 07/14 PM and 07/15 AM.
Hemodynamically stable with no tachycardia and stable hemoglobin
CTA on 07/15 with no bleeding.
Recurrent painless rectal bleeding with introduction of Lovenox.
Status post sigmoidoscopy on 07/17 with findings of near obstructing submucosal hematoma
Patient opted for conservative management
Holding anticoagulation
Clear liquid diet
Close monitoring of hemoglobin
Antiphospholipid syndrome.
Chronic anticoagulation with Coumadin
Patient will need bridging with Lovenox to therapeutic INR (increased risk for thromboembolic events without bridging given transient decrease of protein S C levels with initiation of Coumadin)
Abnormal LFTs with mild elevation of transaminases.
Follow trend.
If uptrending consider imaging
Essential hypertension
Continue verapamil
Anticipated Discharge: 24 - 48 hours
Subjective/Interval History
-
Date of Service: July 19, 2024
Objective Data
-
Labs:
Laboratory Results
07/19/24
06:17
WBC 6.3
Hgb 11.5 L
Hct 33.0 L
Plt Count 207
Vital Signs:
Vital Signs
Temp Pulse Resp BP Pulse Ox
97.7 F 69 18 144/91 95
07/19/24 15:20 07/19/24 15:20 07/19/24 15:20 07/19/24 15:20 07/19/24 15:20
I&O
07/18/24 07/19/24 07/20/24
06:59 06:59 06:59
Intake Total 800 / 800 900 / 900
Balance 800 / 800 900 / 900
Physical Exam
-
General: Well Developed and No Apparent Distress
HEENT: Normocephalic, Atraumatic and Moist Mucous Membranes
Respiratory: Clear to Auscultation
Cardiac: Regular Rhythm and S1/S2; Negative Murmur, Rub or Gallop
GI: Soft, Nontender, Nondistended and Normal Bowel Sounds; Negative Organomegaly
Rectal: Deferred by Provider
Musculoskeletal: No Clubbing, No Cyanosis and No Edema
Skin: Negative Rash
Neuro: Nonfocal/Grossly Intact
[2024-07-19 19:27] VITALS: BP 140/90
[2024-07-19] MEDS: CALAN EXTENDED RELEASE 180 MG PO (22:09)
[2024-07-19 23:34] VITALS: BP 114/68
[2024-07-20 02:50] VITALS: BP 106/66
[2024-07-20 06:54] LABS: % Basophils 0.6 % (0-2); % Eosinophils 2.7 % (0-6); % Immature Granulocytes 0.3 % (0-0.5); % Lymphocytes 18.6 % (20.5-51.1); % Monocytes 9.1 % (1.7-9.3); % Neutrophils 68.7 % (42.2-75.2); Absolute Eosinophils 0.2 10^3/uL (0-0.7); Absolute Lymphocytes 1.2 10^3/uL (1.2-3.4); Absolute Monocytes 0.6 10^3/uL (0.1-0.6); Absolute Neutrophils 4.4 10^3/uL (1.4-6.5); Hematocrit 31.6 % (37.0-47.0); Mean Corp Hgb Conc. 34.8 g/dL (33.0-37.0); Mean Corpuscular Hgb 33.1 pg (27.0-31.0); Mean Corpuscular Volume 95.2 fL (81.0-99.0); Mean Platelet Volume 10.5 fL (7.4-10.4); Nucleated Red Blood Cells % 0 %; Platelet Count 218 10^3/uL (130-400); Red Blood Cell Count 3.32 10^6/uL (4.20-5.40); Red Cell Dist. Width 11.7 % (11.5-14.5); White Blood Cell Count 6.4 10^3/uL (4.8-10.8)
[2024-07-20 07:25] VITALS: BP 138/86
--- NOTE | 2024-07-20 08:54 | W.PN.ONC2 ---
Today's Communication / Plan
-
.
Impression
Impression
APLS on chronic warfarin
A/W BRBPR s/p colonoscopy while bridging back to warfarin with enoxaparin
History of renal infarct
Right ring finger distal arterial thrombosis
Migraine headaches
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
Plan
Plan
resume anticoagulation without bridge when cleared by colorectal surgery -her previous dose of warfarin was 2.5mg alternating with 5mg, however, with limited PO intake she was advised to start 2.5mg daily and check INR THurs with Dr. Guevara for
further instructions depending on PO intake and INR result
Has previously been off of anticoagulation for protracted period following spontaneous mesenteric bleed
Previously evaluated for von Willebrand's disease negative
Monitor CBC daily
OP follow up with Dr. Tan annually, [facility] cardiology historically manages warfarin with INR goal 2-2.5
Subjective/Objective
Subjective
no new complaints
no bleeding
RLQ tenderness to palpate
no BM but passing flatus
Vital Signs:
Vital Signs
Temp Pulse Resp BP Pulse Ox
98.3 F 74 18 138/86 95
07/20/24 07:25 07/20/24 07:25 07/20/24 07:25 07/20/24 07:25 07/20/24 07:25
Lab Results:
Laboratory Data
WBC 6.4 10^3/uL (4.8-10.8) 07/20/24 05:55
Hgb 11.0 g/dL (12.0-16.0) L 07/20/24 05:55
Plt Count 218 10^3/uL (130-400) 07/20/24 05:55
PT 13.6 Sec (11.4-14.6) 07/18/24 05:36
INR 1.01 07/18/24 05:36
APTT 30.1 Sec (23.4-35.0) 07/18/24 05:36
eGFR > 60.00 07/18/24 05:36
Physical Exam
HEENT: Moist Mucous Membranes; No Jaundice
Cardiology: Normal Sinus Rhythm
Pulmonary: Clear
GI: Soft
Extremities: Pulses Present
--- NOTE | 2024-07-20 10:58 | W.PN.CRS1 ---
Today's Communication / Plan
-
Regular diet
Restart Coumadin
Assessment/Plan
-
59-year-old female with PMH of APS (on Coumadin at home) who underwent colonoscopy on 07/13 while on bridging therapeutic Lovenox; presented with blood per rectum and admitted for observation; hemoglobin has been stable throughout but due to
persistence bleeding, underwent flexible sigmoidoscopy on 07/17, found to have mucosal injury and near obstructing submucosal hematoma of about 10 cm in length at the proximal sigmoid colon
AFVSS
Hb 11.0, WBC 6.4
�-No further bleeding for 2 days, okay to start regular diet
- Discussed with Dr. Chowdary, hospitalist, and hematology. Plan is for Coumadin with no bridging. Okay to restart. Monitor closely at home with outpatient lab work
- Follow-up with Dr. Chowdary
Subjective Data
Subjective Data
Date of Service: July 20, 2024
Objective Data
-
Vital Signs
Temp Pulse Resp BP Pulse Ox
98.3 F 74 18 138/86 95
07/20/24 07:25 07/20/24 07:25 07/20/24 07:25 07/20/24 07:25 07/20/24 07:25
Intake & Output
07/19/24 07/20/24 07/21/24
06:59 06:59 06:59
Intake Total 900 / 900 1680 / 1680
Balance 900 / 900 1680 / 1680
Intake:
Oral fluids 900 / 900 1680 / 1680
Other:
Number of approximated MODERATE 2 3
amounts of urine
Lab Results
07/20/24 05:55
07/18/24 05:36
Physical Exam
-
General: No Acute Distress and AOx3
Abdomen: Soft, Non Distended and Non Tender
Skin: Warm and Dry
[2024-07-20 11:25] VITALS: BP 123/78
--- NOTE | 2024-07-20 11:57 | W.DS.TRANS ---
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
-
Discharge Instructions:
Discharge Diagnosis/Procedures Lower Gi beeding
Diet Regular
Blood Work inr on 07/22/2024
Instructions:
Stand-Alone Forms:
Changes to Home Medications: No
Discharge Medications:
DC Medications w/original date entered in [facility]
acetaminophen 325 mg tablet (Tylenol) 650 mg PO Q4HPRN PRN mild pain 07/14/24
cholecalciferol (vitamin D3) 25 mcg (1,000 unit) tablet (Vitamin D3) 25 mcg PO DAILY Supplement 07/14/24
magnesium oxide 420 mg tablet 420 mg PO DAILY Supplement 07/14/24
riboflavin (vitamin B2) 50 mg tablet 50 mg PO DAILY Supplement 07/14/24
triamcinolone acetonide 55 mcg nasal spray aerosol (Nasacort) 1 spray intranasal DAILY Allergies 07/14/24
verapamil 180 mg tablet,extended release 180 mg PO DAILY Blood Pressure 07/14/24
warfarin 2.5 mg tablet 2.5 mg PO DAILY #30 tabs 07/20/24
Home Medication Changes
Pending Results: No
--- NOTE | 2024-07-20 12:54 | CM ---
Patient for d/c today
No CM needs identified at this time
Plan: Home, no needs
[2024-07-20 15:11] VITALS: BP 115/74
== END 2024-07-20 15:37 | disposition home or self-care (01) | DRG 920 ==
LOC: 4 EAST ACU 08:31
PROVIDERS: Hospitalist; Physician Assistant; Registered Nurse; Student in an Organized Health Care Education/Training Program; Surgery; ADMITTING PHYSICIAN Hospitalist; ATTENDING PHYSICIAN Internal Medicine; CONSULT PHYSICIAN Internal Medicine Hematology & Oncology; CONSULT PHYSICIAN Surgery; EMERGENCY PHYSICIAN Student in an Organized Health Care Education/Training Program
PROC: 0DJD8ZZ Inspection of Lower Intestinal Tract, Via Natural or Artificial Opening Endoscopic (ICD-10-PCS; 2024-07-17)
DX: K91.840 Postprocedural hemorrhage of a digestive system organ or structure following a digestive system procedure (principal); D62 Acute posthemorrhagic anemia; D68.61 Antiphospholipid syndrome; Y83.8 Other surgical procedures as the cause of abnormal reaction of the patient, or of later complication, without mention of misadventure at the time of the procedure; Z79.01 Long term (current) use of anticoagulants; E87.6 Hypokalemia; I10 Essential (primary) hypertension; G43.909 Migraine, unspecified, not intractable, without status migrainosus; Z86.73 Personal history of transient ischemic attack (TIA), and cerebral infarction without residual deficits; K64.8 Other hemorrhoids; Z79.899 Other long term (current) drug therapy; Z82.49 Family history of ischemic heart disease and other diseases of the circulatory system; Z88.0 Allergy status to penicillin; Z88.1 Allergy status to other antibiotic agents; Z88.3 Allergy status to other anti-infective agents
CPT/HCPCS: 74174; 80048; 80053; 82248; 85014; 85018; 85025; 85027; 85610; 85730; 86850; 86900; 86901; Q9967

== ENCOUNTER → 2024-10-15 10:20 | Outpatient (REF) | payer BC, SELFPAY | LOC: RAD 10:20 | PROVIDERS: ATTENDING PHYSICIAN Family Medicine | DX: R10.31 Right lower quadrant pain (principal); K59.09 Other constipation | CPT/HCPCS: 74177; Q9967 ==